=== PATIENT | male | born 1985 | race Caucasian/White ===

== ENCOUNTER 2021-07-06 04:19 | Day surgery (SDC) | payer BC ==
[2021-06-30 16:03] VITALS: BMI 25.0
[2021-07-06] MEDS ORDERED: COCAINE HCL 4% TOPICAL SOLUTION 4 ML BOTTLE TP ONE ×2 (07:25→08:24)
[2021-07-06] MEDS ORDERED: LIDOCAINE 1%/EPI 1:100000 (20 ML MULTI DOSE VIAL) ONE (07:28)
[2021-07-06] MEDS ORDERED: MIDAZOLAM HCL 2 MG/2 ML SINGLE DOSE VIAL ONE (07:43)
[2021-07-06] MEDS ORDERED: PROPOFOL 20 ML ONE ×2 (07:43)
[2021-07-06] MEDS ORDERED: ROCURONIUM BROMIDE 50 MG/5 ML SYRINGE ONE (07:43)
[2021-07-06] MEDS ORDERED: LIDOCAINE 1%/EPI 1:100000 (20 ML MULTI DOSE VIAL) INF ONE (08:49)
[2021-07-06] MEDS ORDERED: BACITRACIN 15 GM TUBE TOPICAL OINTMENT ONE (09:43)
[2021-07-06] MEDS ORDERED: GLYCOPYRROLATE 0.2 MG/1 ML VIAL ONE ×2 (09:46→09:47)
[2021-07-06] MEDS ORDERED: NEOSTIGMINE METHYLSULFATE 0.5 MG/ML - 10 ML MDV ONE (09:46)
[2021-07-06] MEDS ORDERED: oxyCODONE HCL 5 MG TABLET PO PRN (09:58)
[2021-07-06] MEDS ORDERED: PROMETHAZINE HCL 25 MG/1 ML VIAL IVPUSH PRN (09:58)
[2021-07-06] MEDS ORDERED: ONDANSETRON 4 MG/2 ML VIAL IVPUSH PRN (09:58)
[2021-07-06] MEDS ORDERED: ACETAMINOPHEN 325 MG TABLET (FP) PO PRN (10:05)
[2021-07-06] MEDS ORDERED: LACTATED RINGERS SOLUTION 1,000 ML IV SCH (10:15)
[2021-07-06 14:02] VITALS: BP 140/80; PULSE 56; TEMP 98.2
== END 2021-07-06 13:30 | disposition home or self-care (01) ==
LOC: JASU-SURG 04:19
PROVIDERS: ATTEND Otolaryngology
PROC: 09TV8ZZ Resection of Left Ethmoid Sinus, Via Natural or Artificial Opening Endoscopic (ICD-10-PCS; 2021-07-06)
PROC: 09TU8ZZ Resection of Right Ethmoid Sinus, Via Natural or Artificial Opening Endoscopic (ICD-10-PCS; 2021-07-06)
PROC: 8E09XBZ Computer Assisted Procedure of Head and Neck Region (ICD-10-PCS; principal; 2021-07-06 08:00)
DX: J32.4 Chronic pansinusitis (principal); J33.9 Nasal polyp, unspecified; J34.3 Hypertrophy of nasal turbinates
CPT/HCPCS: 94760

== ENCOUNTER 2022-02-27 21:11 | Inpatient (IN) | payer BC ==
[2022-02-27 21:20] VITALS: BMI 25.0
[2022-02-27] MEDS ORDERED: ACETAMINOPHEN 1000 MG/100 ML BAG IVPB ONE (22:19)
[2022-02-27] MEDS ORDERED: CLINDAMYCIN 600MG PREMIX IVPB 600 MG/50 ML BAG IVPB ONE ×2 (22:19→22:26)
[2022-02-27] MEDS ORDERED: SODIUM CHLORIDE 1,000 ML IV STA (22:19)
[2022-02-27] MEDS ORDERED: DIPHTH,PERTUSS(ACELL),TET 0.5 ML DISP.SYRIN IM ONE ×2 (22:20→22:27)
[2022-02-27] MEDS ORDERED: ACETAMINOPHEN INJECTION 100 ML IVPB ONE (22:26)
[2022-02-27 22:40] LABS: BASO % 0.1 % (0-2.0); EOS % 1.3 % (0-4.5); HEMATOCRIT 42.4 % (35.4-49); HEMOGLOBIN 14.4 GM/dL (11.7-16.9); MCH 30.8 pg (25.7-33.7); MEAN CELL VOLUME 90.7 fl (80-96); MEAN PLT VOLUME 9.3 fl (7.5-11.1); NEUT % 87.6 % (42.8-82.8); PLATELET COUNT 183 10^3/uL (134-434); RBC 4.68 M/mm3 (4.00-5.60); RDW 13.1 % (11.9-15.9); WHITE BLOOD COUNT 13.7 K/mm3 (4.0-10.0)
[2022-02-27 22:49] LABS: INR 1.19 (0.83-1.09); PROTHROMBIN TIME (PATIENT) 13.7 SEC (9.7-13.0)
[2022-02-27 22:51] LABS: ACTIVATED PTT 30.1 SECONDS (25.2-36.5)
[2022-02-27 23:09] LABS: CHLORIDE 102 mmol/L (98-107); SODIUM 139 mmol/L (136-145)
[2022-02-27 23:12] LABS: ALBUMIN 4.1 g/dl (3.4-5.0); ANION GAP 10 MMOL/L (8-16); BLOOD UREA NITROGEN 11.3 mg/dL (7-18); CO2 26 mmol/L (21-32); GLUCOSE,RANDOM 98 mg/dL (74-106)
[2022-02-27 23:15] LABS: CREATININE 1.1 mg/dL (0.55-1.3); SGOT/AST 19 U/L (15-37); SGPT/ALT 27 U/L (13-61)
[2022-02-27 23:17] LABS: TOT PROT 7.8 g/dl (6.4-8.2)
[2022-02-27 23:18] LABS: ALK PHOS 46 U/L (45-117)
[2022-02-28] MEDS ORDERED: HEPARIN NA (PORCINE) 5,000 UNITS/ML 1ML VIAL ONE (07:35)
[2022-02-28] MEDS: HEPARIN NA (PORCINE) 5,000 UNITS/ML 1ML VIAL SQ SCH ×3 (07:39→21:40)
[2022-02-28] MEDS: LEVOTHYROXINE NA 125 MCG TABLET (FP) PO SCH (08:27)
[2022-02-28] MEDS ORDERED: PANTOPRAZOLE 40 MG TABLET PO ONE (08:57)
[2022-02-28 09:02] LABS: URINE APPEARANCE CLEAR; URINE BILIRUBIN NEGATIVE (NEGATIVE); URINE COLOR YELLOW; URINE GLUCOSE (UA) NEGATIVE (NEGATIVE); URINE KETONE TRACE (NEGATIVE); URINE LEUK ESTERASE NEGATIVE (NEGATIVE); URINE NITRITE NEGATIVE (NEGATIVE); URINE PROTEIN TRACE (NEGATIVE)
[2022-02-28] MEDS: PANTOPRAZOLE 40 MG TABLET PO SCH (09:05)
[2022-02-28] MEDS ORDERED: ACETAMINOPHEN 325 MG TABLET (FP) PO PRN (11:06)
[2022-02-28] MEDS ORDERED: PIPERACILLIN/TAZOBACTAM 3.375 GM VIAL IVPB ONE (16:20)
[2022-02-28] MEDS: PIPERACILLIN/TAZOB 3.375 GM 3.375 GM in DEXTROSE 5%-WATER - 50 ML IVPB SCH (16:21)
[2022-02-28] MEDS: VANCOMYCIN/WATER FOR INJ (PEG) 1,000 MG/200 ML BAG IVPB SCH (17:13)
[2022-03-01] MEDS: PIPERACILLIN/TAZOB 3.375 GM 3.375 GM in DEXTROSE 5%-WATER - 50 ML IVPB SCH ×2 (01:48→09:34)
[2022-03-01] MEDS: VANCOMYCIN/WATER FOR INJ (PEG) 1,000 MG/200 ML BAG IVPB SCH (03:45)
[2022-03-01] MEDS: LEVOTHYROXINE NA 125 MCG TABLET (FP) PO SCH (06:24)
[2022-03-01] MEDS: HEPARIN NA (PORCINE) 5,000 UNITS/ML 1ML VIAL SQ SCH ×2 (06:24→14:07)
[2022-03-01 09:09] LABS: BASO % 0.2 % (0-2.0); EOS % 5.4 % (0-4.5); HEMATOCRIT 39.5 % (35.4-49); HEMOGLOBIN 13.6 GM/dL (11.7-16.9); LYMPH % 14.1 % (8-40); MCH 31.2 pg (25.7-33.7); MCHC 34.4 g/dl (32.0-35.9); MEAN CELL VOLUME 90.8 fl (80-96); MEAN PLT VOLUME 9.6 fl (7.5-11.1); MONO % 7.5 % (3.8-10.2); NEUT % 72.8 % (42.8-82.8); PLATELET COUNT 175 10^3/uL (134-434); RBC 4.35 M/mm3 (4.00-5.60); RDW 13.4 % (11.9-15.9); WHITE BLOOD COUNT 9.5 K/mm3 (4.0-10.0)
[2022-03-01] MEDS: PANTOPRAZOLE 40 MG TABLET PO SCH (09:34)
[2022-03-01 09:57] LABS: ERYTHROCYTE SEDIMENTATION RATE 37 mm/hr (0-10)
[2022-03-01] MEDS ORDERED: CYANOCOBALAMIN (VITAMIN B-12) 1000 MCG/1 ML VIAL IM ONE (10:06)
[2022-03-01 10:54] VITALS: BP 132/79; PULSE 77; RESP 17; TEMP 98.1
[2022-03-02] MEDS ORDERED: CYANOCOBALAMIN 1,000 MCG TABLET (FP) PO SCH (10:00)
== END 2022-03-01 14:00 | disposition home or self-care (01) | DRG 872 ==
LOC: JER 21:11 → JERBED 21:42 → J6S 02-28 11:50
PROVIDERS: ADMIT Internal Medicine; ATTEND Internal Medicine
DX: A41.89 Other specified sepsis (principal); L03.116 Cellulitis of left lower limb; R50.9 Fever, unspecified; R51.9 Headache, unspecified; R00.0 Tachycardia, unspecified; E03.9 Hypothyroidism, unspecified; R11.0 Nausea; S80.12XA Contusion of left lower leg, initial encounter; S90.812A Abrasion, left foot, initial encounter; S80.812A Abrasion, left lower leg, initial encounter; M79.10 Myalgia, unspecified site; D72.829 Elevated white blood cell count, unspecified; E53.8 Deficiency of other specified B group vitamins; W17.89XA Other fall from one level to another, initial encounter; Y92.89 Other specified places as the place of occurrence of the external cause
CPT/HCPCS: 36415; 71045-TC-FY; 73590-TC-LT-FY; 80053; 81003; 82550; 82553; 82607; 83605; 84443; 84484; 85025; 85610; 85651; 85730; 86140; 87040; 87086; 90715; 97116-GP; 97162-GP; 99285-25; C9803-CS; J1644; U0003; U0005